=== PATIENT | female | born 1980 | race Caucasian/White ===

== ENCOUNTER 2020-02-20 09:48 | Inpatient (IN) | payer MEDICAID ==
[2020-02-20] VITALS (29 sets, daily range): BP systolic 81–117; BP diastolic 30–82
[~2020-02-20] VITALS: Ht 162.6 cm; Wt 103.0 kg
[2020-02-20] MEDS ORDERED: ONDANSETRON HCL/PF 4 MG/2 ML VIAL IVP ONE (10:00)
[2020-02-20] MEDS ORDERED: HALOPERIDOL LACTATE INJ 5 MG/ML VIAL IM ONE (10:00)
[2020-02-20] MEDS ORDERED: IV NS 0.9% 500 ML BAG IV ONE (10:00)
[2020-02-20] MEDS ORDERED: ACETAMINOPHEN 650 MG/SUPP.RECT RC ONE ×2 (10:00→10:17)
--- NOTE | 2020-02-20 10:00 | NUR ---
berenice from home, found altered this morning. Patient opens eyes, moans, confused at this time. Patient changed into gown, attached to the site monitor.
[2020-02-20] MEDS ORDERED: ONDANSETRON HCL/PF 4 MG/2 ML VIAL ONE (10:05)
[2020-02-20] MEDS ORDERED: HALOPERIDOL LACTATE INJ 5 MG/ML VIAL ONE (10:05)
[2020-02-20 10:11] LABS: ABG BASE EXCESS -6.9 mmol/L; ABG OXYGEN SATURATION 92.7 % (92.0-98.5); ABG PCO2 23.4 mmHg (35.0-45.0); ABG PH 7.462 (7.350-7.450); ABG PO2 73.7 mmHg (75.0-100.0); COHb 3.3 % (0.5-1.5); MetHb 1.3 % (0.0-1.5); O2Hb 88.4 % (94.0-97.0); SITE, ABG Right Radial; VENT MODE, BG ROOM AIR
[2020-02-20 10:26] LABS: LYMPHOCYTES # (AUTO) 0.3 /CMM (0.8-4.8); LYMPHOCYTES % (AUTO) 5.6 % (20.0-44.0); MEAN CORPUSCULAR HGB CONC 34 g/dl (31.0-36.0)
[2020-02-20 10:28] LABS: BASOPHILS % (AUTO) 0.6 % (0.0-2.0); MEAN CORPUSCULAR VOLUME 122 fL (82-100); MONOCYTES # (AUTO) 0.7 /CMM (0.1-1.30); MONOCYTES % (AUTO) 12.2 % (2.0-12.0); NEUTROPHILS # (AUTO) 4.8 /CMM (1.8-8.9); NEUTROPHILS % (AUTO) 79.6 % (43.0-81.0)
[2020-02-20 10:34] LABS: RED BLOOD CELL COUNT(AUTO) 1.37 MIL/uL (4.0-5.2)
[2020-02-20 10:35] LABS: HEMATOCRIT 17 % (33-45); HEMOGLOBIN 5.7 g/dL (11.5-14.8); PLATELET COUNT (AUTO) 49 /CMM (150-450)
[2020-02-20 10:36] LABS: CALCIUM, SERUM 8.8 mg/dL (8.5-10.1); CARBON DIOXIDE 18 mmol/L (21-32); CHLORIDE 100 mmol/L (98-107); CREATININE 3.2 mg/dL (0.6-1.3); GLUCOSE 108 mg/dL (74-106); POTASSIUM 5.4 mmol/L (3.5-5.1); SODIUM SERUM 131 mmol/L (136-145); UREA NITROGEN, BLOOD 76 mg/dL (7-18)
[2020-02-20 10:41] LABS: ALANINE AMINOTRANSFERASE 36 U/L (12-78); ALBUMIN 2.9 g/dL (3.4-5.0); ALCOHOL, BLOOD < 3 mg/dL (0-0); ALKALINE PHOSPHATASE 59 U/L (46-116); ASPARTATE AMINOTRANSFERASE 115 U/L (15-37); BILIRUBIN,TOTAL 16.2 mg/dL (0.2-1.0); TOTAL PROTEIN, SERUM 6.3 g/dL (6.4-8.2)
[2020-02-20 10:42] LABS: ACETAMINOPHEN 0 ug/ml (10-30); SALICYLATE < 2.8 mg/dL (2.8-20.0)
[2020-02-20 10:48] LABS: APPEARANCE,URINE Clear (CLEAR); BILIRUBIN,URINE SMALL (NEGATIVE); BLOOD, URINE Moderate Ery/uL (NEGATIVE); COLOR,URINE Yellow (YELLOW); KETONES,URINE Negative (NEGATIVE); LEUKOCYTE ESTERASE ,URINE Large (NEGATIVE); NITRITE, URINE Positive (NEGATIVE); PROTEIN,URINE 100 mg/dl (NEGATIVE); UGLUCOSE Negative (NEGATIVE)
[2020-02-20 10:50] LABS: SERUM AMMONIA 31 umol/L (11-32)
[2020-02-20 10:51] LABS: BACTERIA,URINE 1+ /HPF (None Seen); WBC,URINE 21-50 /HPF (0-3)
--- NOTE | 2020-02-20 11:02 | NUR ---
move sheet submitted
[2020-02-20 11:05] LABS: CREATINE KINASE, TOTAL 729 U/L (26-192); FERRITIN 134 ng/mL (8-388); THYROID STIMULATING HORMONE 1.178 uIU/mL (0.358-3.74)
[2020-02-20 11:12] LABS: C-REACTIVE PROTEIN 11.1 mg/dL (0.0-0.9)
--- NOTE | 2020-02-20 11:13 | NUR ---
PATIENT RESTING, NO DISTRESS NOTED.
[2020-02-20] MEDS ORDERED: PIPERACILLIN /TAZOBACTAM 3.375 G in IV D5W 50 ML IV ONE (11:30)
[2020-02-20] MEDS ORDERED: IV NS 0.9% 1,000 ML BAG IV ONE (11:30)
[2020-02-20 11:34] LABS: D-DIMER 25.5 mg/L(FEU (0.17-0.50)
[2020-02-20 11:35] LABS: BAND % (MANUAL) 1 % (0.0-5.0); EOSINOPHILS % (MANUAL) 1 % (0-4); LYMPHOCYTES % (MANUAL) 6 % (16-48); MONOCYTES % (MANUAL) 9 % (0-11.0); NEUTROPHILS % (MANUAL) 83 (42-76)
[2020-02-20] MEDS ORDERED: SPIR100T5 PO (11:50)
[2020-02-20] MEDS ORDERED: PROP10TA68 PO (11:50)
[2020-02-20] MEDS ORDERED: FURO40TA5 PO (11:50)
--- NOTE | 2020-02-20 12:22 | NUR ---
PATIENT RESTING, ASLEEP IN BED, VITALS STABLE.
--- NOTE | 2020-02-20 12:39 | NUR ---
CONSENT FOR BLOOD TRANSFUSION ALSO WITNESSED BY CRISPIN CHOWDHURY RN AND KIESHA BRYANT RN.
--- NOTE | 2020-02-20 12:39 | NUR ---
TIESHA DIAZ (DAUGHTER) - 12/14/1999 TELEPHONE CONSENT OBTAIN FOR BLOOD TRANSFUSION WITNESSED BY NEREIDA BAKER
--- NOTE | 2020-02-20 12:42 | NUR ---
LAB CALLED LACTIC ACID 3.2 MD AWARE.
--- NOTE | 2020-02-20 12:44 | NUR ---
PATIENT SPITTING OUT BLOOD, DR. LUX MADE AWARE.
--- NOTE | 2020-02-20 12:45 | NUR ---
COVID PCR SWAB SENT.
--- NOTE | 2020-02-20 12:45 | NUR ---
GOT BED 258
--- NOTE | 2020-02-20 12:58 | NUR ---
REPORT GIVEN TO YOKO PADRON.
--- NOTE | 2020-02-20 13:05 | NUR ---
MANAGER NEONATAL INITIAL NOTE RECEIVED REPORT FROM ER NURSE STEFFEN. RECEIVED PATIENT VIA GURNEY. PATIENT NON-VERBAL, ALTERED, LETHARGIC. NO S/S OF PAIN OR DISCOMFORT. NO RESPIRATORY DISTRESS NOTED, ON ROOM AIR. ON TELE MONITOR SINUS TACH. F/C IN PLACE DRAINING BY GRAVITY. PENDING PCR RESULT, ISOLATION PRECAUTIONS OBSERVED. SKIN WARM AND DRY TO TOUCH. AFEBRILE. UNABLE TO OBTAIN INFORMATION FROM PATIENT. NOTED WITH BLE EDEMA AND YELLOWISH SKIN AND SCLERA. HOB ELEVATED. SIDE RAILS UP AND LOCKED. BED KEPT AT LOWEST POSITION. CALL LIGHT KEPT WITHIN EASY REACH. PER REPORT PATIENT WAS RESTLESS IN ER AND ONE TIME DOSE OF HALDOL WAS GIVEN WELL FLUIDS AND ABX. PER REPORT ONE UNIT PRBC AND ONE UNIT PLATELET NEEDS TO BE GIVE. WILL CONTINUE TO MONITOR.
--- NOTE | 2020-02-20 13:12 | NUR ---
PATIENT TRANSFERRED TO ROOM 258 VIA ACLS PROTOCOL. PATIENT AWAKE, NON-VERBAL AND CONFUSED AT THIS TIME. NEEDS ATTENDED. ENDORSED TO YOKO RN.
[2020-02-20] MEDS ORDERED: SODIUM POLYSTYRENE SULFONATE 15 G/60 ML BOTTLE RC ONE (14:00)
[2020-02-20] MEDS ORDERED: ONDANSETRON HCL/PF 4 MG/2 ML VIAL IVP PRN (14:00)
[2020-02-20] MEDS ORDERED: MAGNESIUM HYDROXIDE 30 ML UDC PO PRN (14:00)
[2020-02-20] MEDS ORDERED: MAG HYDROX/AL HYDROX/SIMETH 30 ML UDC PO PRN (14:00)
[2020-02-20] MEDS ORDERED: HALOPERIDOL LACTATE INJ 5 MG/ML VIAL IM PRN (14:00)
[2020-02-20] MEDS ORDERED: Z GUARD REMEDY 2 OZ OINT TP PRN (14:00)
--- NOTE | 2020-02-20 14:08 | NUR ---
CARCASS WASHER NOTE RELAYED TO SILKE PATIENT BLOOD PRESSURE 84/30. WITH ORDERS OK TO START LEVO AND RECHECK WBC AND H/H 2 HOURS AFTER PLATELETS AND PRBC GIVEN. NOTED.
[2020-02-20] MEDS ORDERED: NOREPINEPHRINE 8 MG in IV NS 0.9% 242 ML IV PRN (14:30)
[2020-02-20] MEDS ORDERED: PIPERACILLIN /TAZOBACTAM 2.25 G in IV D5W 50 ML IV SCH ×2 (15:00→20:00)
[2020-02-20 16:14] LABS: CREATININE, URINE 55.4 MG/DL (30.0-125.0); URINE TOTAL PROTEIN 58.9 mg/dL (0-11.9)
[2020-02-20 16:20] LABS: APPEARANCE,URINE SL CLOUDY (CLEAR); BILIRUBIN,URINE SMALL (NEGATIVE); BLOOD, URINE MODERATE Ery/uL (NEGATIVE); COLOR,URINE YELLOW (YELLOW); KETONES,URINE NEGATIVE (NEGATIVE); LEUKOCYTE ESTERASE ,URINE LARGE (NEGATIVE); NITRITE, URINE POSITIVE (NEGATIVE); PROTEIN,URINE 30 mg/dl (NEGATIVE); UGLUCOSE NEGATIVE (NEGATIVE)
[2020-02-20 16:24] LABS: BACTERIA,URINE 3+ /HPF (None Seen); RBC,URINE 21-50 /HPF (0-2); SQUAMOUS EPITHELIAL CELL,UR Few /HPF (None Seen); WBC,URINE TOO NUMEROUS TO COUN /HPF (0-3)
[2020-02-20] MEDS: IV NS 0.9% 1,000 ML IV PRN (17:00)
[2020-02-20 17:04] LABS: EOSINOPHIL,URINE Rare
--- NOTE | 2020-02-20 18:04 | NUR ---
CLASSIFICATION COUNSELOR NOTE INFORMED SILKE PATIENT COMPLETED ONE UNIT OF PRBC AND ONE UNIT OF PLATELET WITH NO DIFFICULTIES. CBC WILL BE DRAWN AT 1900. RECEIVED STANDING ORDER IF PATIENTS HEMOGLOBIN IS LESS THAN 7 TRANSFUSE ONE MORE UNIT OF PRBC. NOTED AND WILL RELAY TO NIGHT NURSE.
--- NOTE | 2020-02-20 18:07 | NUR ---
WAD LUBRICATOR NOTE PICC LINE NURSE AT BEDSIDE.
--- NOTE | 2020-02-20 18:14 | NUR ---
CUSTOMER SERVICE REP NOTE CXR DONE FOR PICC LINE PLACEMENT, PER PICC LINE NURSE OK TO USE PICC LINE.
[2020-02-20] MEDS ORDERED: FEE PK DOSING 1 MIN EA MC ONE (18:59)
[2020-02-20] MEDS ORDERED: PHYTONADIONE INJ 10 MG/1 ML AMPUL SQ ONE (20:00)
[2020-02-20] MEDS: prednisoLONE 5 MG/5 ML UDC PO SCH (20:00)
[2020-02-20] MEDS ORDERED: LORAZEPAM INJ 2 MG/ML VIAL IV PRN (20:00)
[2020-02-20] MEDS ORDERED: VANCOMYCIN 1 GM in IV D5W 250 ML IV SCH (20:00)
[2020-02-20] MEDS: PENTOXIFYLLINE 400 MG TABLET.SA PO SCH (20:00)
[2020-02-20 20:03] LABS: BASOPHILS % (AUTO) 0.8 % (0.0-2.0); EOSINOPHILS % (AUTO) 2.1 % (0.0-6.0); LYMPHOCYTES # (AUTO) 0.3 /CMM (0.8-4.8); LYMPHOCYTES % (AUTO) 5.7 % (20.0-44.0); MEAN CORPUSCULAR HGB CONC 34 g/dl (31.0-36.0); MEAN CORPUSCULAR VOLUME 114 fL (82-100); MONOCYTES # (AUTO) 0.7 /CMM (0.1-1.30); MONOCYTES % (AUTO) 14.5 % (2.0-12.0); NEUTROPHILS # (AUTO) 3.7 /CMM (1.8-8.9); NEUTROPHILS % (AUTO) 76.9 % (43.0-81.0); WHITE BLOOD COUNT (AUTO) 4.8 K/uL (4.3-11.0)
[2020-02-20 20:08] LABS: RED BLOOD CELL COUNT(AUTO) 1.52 MIL/uL (4.0-5.2)
--- NOTE | 2020-02-20 20:10 | NUR ---
lab called for HGB=5.9. Will order 1 unit PRBC for transfusion as ordered .( with order to transfuse 1 PRBC if HGB still < 7 with the 1900 blood draw).
[2020-02-20 20:11] LABS: HEMOGLOBIN 5.9 g/dL (11.5-14.8)
[2020-02-20 20:12] LABS: HEMATOCRIT 17 % (33-45); PLATELET COUNT (AUTO) 48 /CMM (150-450)
--- NOTE | 2020-02-20 20:13 | NUR ---
CARTRIDGE FILLER CLOSING NOTE PATIENT MORE AWAKE, ALERT AND ORIENTED TO SELF. COOPERATIVE, FOLLOWING COMMANDS. PATIENT HAD ONE BOWEL MOVEMENT AFTER KAYEXALATE ADMINISTRATIONS. NO BLOOD TRANSFUSION REACTION AFTER PRBC AND PLATELET GIVEN. F/C DRAINING BY GRAVITY. PICC LINE NURSE RETRACTED PICC LINE BY 5CM, NOTED WITH BLEEDING AFTERWARDS. DRESSING CHANGED BY PM NURSE. HOB ELEVATED. F/C DRAINING BY GRAVITY. SIDE RAILS UP AND LOCKED. BED KEPT AT LOWEST POSITION. CALL LIGHT KEPT WITHIN EASY REACH. CONTINUITY OF CARE ENDORSED TO PM NURSE.
--- NOTE | 2020-02-20 20:30 | NUR ---
Order entered for PRBC transfusion .Will transfuse once available.
[2020-02-20 20:34] LABS: BAND % (MANUAL) 12 % (0.0-5.0); LYMPHOCYTES % (MANUAL) 4 % (16-48); METAMYELOCYTES % 2 % (0-0); MONOCYTES % (MANUAL) 15 % (0-11.0); NEUTROPHILS % (MANUAL) 67 (42-76)
--- NOTE | 2020-02-20 20:41 | NUR ---
REceived patient lethargic,arousable ,opens eyes,able to speak few words but unable to stay awake,easily falls back to drowsiness.Knows name,knows birthday,follows simple commands.Not in any acute respiratory distress,but breathing slightly labored with deep inspiratory effort, on nasal cannula 3 L/min. + icteric sclera,+ edema of lower extremities. PICC line @ [facility].Will closely monitor for any S/S of bleeding. 1919 Specimen drawn for CBC.Will transfuse if HGB < 7 with 1 unit PRBC. Addendum: 02/21/20 at 0202 by JENNIFER PIZARRO RN above note is for 1899
[2020-02-20] MEDS ORDERED: Thiamine 100 MG in IV D5W 50 ML IV SCH (21:00)
[2020-02-20] MEDS ORDERED: OCTREOTIDE 50 MCG in IV NS 0.9% 50 ML IV ONE (21:00)
[2020-02-20] MEDS ORDERED: Thiamine 300 MG in IV D5W 50 ML IV ONE (21:00)
[2020-02-20] MEDS: OCTREOTIDE 1,250 MCG in IV NS 0.9% 247.5 ML IV PRN (21:25)
--- NOTE | 2020-02-20 22:00 | NUR ---
Dr. Jolley was notified of the latest HGB of 5.9, Plt= 48. made him aware that there is already an order to transfuse 1 unit PRBC for a Hgb of less than 7,(already ordered),but ask him if he wants additional PRBC or platelet. just give 1 unit tonight and check CBC in am.
[2020-02-20] MEDS: MEROPENEM 500 MG in IV NS 0.9% 100 ML IV SCH (22:01)
--- NOTE | 2020-02-20 23:00 | NUR ---
followed up on the PRBC, not yet ready .as per blood bank tech, she will call me when its ready.
--- NOTE | 2020-02-20 23:45 | NUR ---
PRBC transfusion started.
[2020-02-21] VITALS (58 sets, daily range): BP systolic 88–122; BP diastolic 24–74
--- NOTE | 2020-02-21 | NUR ---
REMAINS STABLE,STILL LETHARGIC BUT STILL AWAKENS ON AND OFF, VERBALLY RESPONSIVE,SEEMS COHERENT BUT VERY PASSIVE.NO BLEEDING NOTED.PRBC TRANSFUSU=ION ON GOING TOLERATING SO FAR ,NO S/S OF ANY TRANSFUSION REACTION.
--- NOTE | 2020-02-21 03:00 | NUR ---
PRBC TRANSFUSION OVER,TOLERATED WELL, NO TRANSFUSION REACTION.STILL WITH NO S/S OF ANY BLEEDING ,V/S REMAINS STABLE.
--- NOTE | 2020-02-21 04:00 | NUR ---
MORE ALERT THIS MORNING,CONVERSES,COHERENT,FOLLOWS COMMANDS. NO ACTIVE BLEEDING NOTED,B,NOT IN ANY DISTRESS BUT C/O SOB WHEN FLAT ON BED AND ON TURNING/MOVING BUT NO DESATURATION.MAINTAIN O2 VIA NASAL CANNULA FOR NOW.
[2020-02-21] MEDS: IV NS 0.9% 1,000 ML IV PRN ×2 (05:07→17:28)
[2020-02-21 05:50] LABS: BASOPHILS % (AUTO) 0.6 % (0.0-2.0); EOSINOPHILS % (AUTO) 1.4 % (0.0-6.0); LYMPHOCYTES # (AUTO) 0.3 /CMM (0.8-4.8); LYMPHOCYTES % (AUTO) 6.2 % (20.0-44.0); MEAN CORPUSCULAR HGB CONC 35 g/dl (31.0-36.0); MEAN CORPUSCULAR VOLUME 109 fL (82-100); MONOCYTES # (AUTO) 0.6 /CMM (0.1-1.30); MONOCYTES % (AUTO) 12.9 % (2.0-12.0); NEUTROPHILS # (AUTO) 3.6 /CMM (1.8-8.9); NEUTROPHILS % (AUTO) 78.9 % (43.0-81.0); WHITE BLOOD COUNT (AUTO) 4.6 K/uL (4.3-11.0)
[2020-02-21 06:02] LABS: ALBUMIN 2.5 g/dL (3.4-5.0); BILIRUBIN,DIRECT 9.8 mg/dL (0.0-0.2); BILIRUBIN,TOTAL 14.4 mg/dL (0.2-1.0); CALCIUM, SERUM 7.9 mg/dL (8.5-10.1); CREATININE 2.7 mg/dL (0.6-1.3); MAGNESIUM 2.5 mg/dL (1.8-2.4); PHOSPHORUS 4.8 mg/dL (2.5-4.9); POTASSIUM 5.6 mmol/L (3.5-5.1); TOTAL PROTEIN, SERUM 5.6 g/dL (6.4-8.2)
[2020-02-21 06:11] LABS: RED BLOOD CELL COUNT(AUTO) 1.72 MIL/uL (4.0-5.2)
[2020-02-21 06:12] LABS: HEMOGLOBIN 6.5 g/dL (11.5-14.8)
[2020-02-21 06:13] LABS: HEMATOCRIT 19 % (33-45); PLATELET COUNT (AUTO) 42 /CMM (150-450)
--- NOTE | 2020-02-21 06:30 | NUR ---
HGB=6.5, PLT=[address] MCALLISTER, ORDERED 1 UNIT PRBC TRANSFUSION.ORDER ENTERED.
--- NOTE | 2020-02-21 07:00 | NUR ---
REPPORT GIVEN TO YOKO PADRON ,FOR PRBC TRANSFUSION THIS AM.
[2020-02-21 07:36] LABS: BAND % (MANUAL) 3 % (0.0-5.0); EOSINOPHILS % (MANUAL) 2 % (0-4); LYMPHOCYTES % (MANUAL) 4 % (16-48); MONOCYTES % (MANUAL) 15 % (0-11.0); NEUTROPHILS % (MANUAL) 76 (42-76)
--- NOTE | 2020-02-21 08:20 | NUR ---
UNDERWRITING SALES REPRESENTATIVE NOTE PATIENT AWAKE, ALERT AND ORIENTED. FOLLOWS COMMANDS. DENIES PAIN AT THIS TIME. PATIENT REQUESTING TO EAT, DID BEDSIDE EVAL, PATIENT WITH NO DIFFICULTY SWALLOWING OR CHEWING, NO COUGHING NOTED. INFORMED DR. DICK WITH OK FOR PATIENT TO EAT. WILL CONTINUE TO MONITOR.
[2020-02-21] MEDS ORDERED: FUROSEMIDE 20 MG/2 ML VIAL IV ONE (08:30)
[2020-02-21] MEDS: MEROPENEM 500 MG in IV NS 0.9% 100 ML IV SCH ×2 (08:55→21:19)
[2020-02-21] MEDS: PENTOXIFYLLINE 400 MG TABLET.SA PO SCH ×3 (08:56→17:28)
[2020-02-21] MEDS: prednisoLONE 5 MG/5 ML UDC PO SCH (08:56)
[2020-02-21] MEDS ORDERED: PANTOPRAZOLE 40 MG VIAL IV SCH (09:00)
[2020-02-21] MEDS ORDERED: SODIUM POLYSTYRENE SULFONATE 15 G/60 ML BOTTLE PO ONE (09:00)
[2020-02-21 12:15] LABS: CALCIUM, SERUM 7.7 mg/dL (8.5-10.1); CREATININE 2.7 mg/dL (0.6-1.3); POTASSIUM 4.9 mmol/L (3.5-5.1)
[2020-02-21] MEDS: VANCOMYCIN 1 GM in IV D5W 250 ML IV SCH (13:56)
[2020-02-21 15:41] LABS: BASOPHILS % (AUTO) 0.3 % (0.0-2.0); EOSINOPHILS % (AUTO) 2.1 % (0.0-6.0); HEMATOCRIT 21 % (33-45); HEMOGLOBIN 7.2 g/dL (11.5-14.8); LYMPHOCYTES # (AUTO) 0.3 /CMM (0.8-4.8); LYMPHOCYTES % (AUTO) 7.7 % (20.0-44.0); MEAN CORPUSCULAR HGB CONC 34 g/dl (31.0-36.0); MEAN CORPUSCULAR VOLUME 106 fL (82-100); MONOCYTES # (AUTO) 0.3 /CMM (0.1-1.30); MONOCYTES % (AUTO) 7.2 % (2.0-12.0); NEUTROPHILS # (AUTO) 3.7 /CMM (1.8-8.9); NEUTROPHILS % (AUTO) 82.7 % (43.0-81.0); WHITE BLOOD COUNT (AUTO) 4.5 K/uL (4.3-11.0)
[2020-02-21 15:55] LABS: RED BLOOD CELL COUNT(AUTO) 1.98 MIL/uL (4.0-5.2)
[2020-02-21 15:56] LABS: PLATELET COUNT (AUTO) 34 /CMM (150-450)
--- NOTE | 2020-02-21 16:02 | NUR ---
BARREL DRILLER NOTE RELAYED CRITICAL PLATELET COUNT [address] VIGIL WITH NNO. RELAYED TO MD PER PHARMACY WE DON'T DO PROTONIX DRIP ANYMORE AND ONLY DO IVP PROTONIX. PER MD OK TO CHANGE PROTONIX TO BID. NOTED AND CARRIED OUT.
[2020-02-21 16:55] LABS: BAND % (MANUAL) 4 % (0.0-5.0); LYMPHOCYTES % (MANUAL) 7 % (16-48); MONOCYTES % (MANUAL) 2 % (0-11.0); NEUTROPHILS % (MANUAL) 80 (42-76); REACTIVE LYMPHOCYTES 7 % (0-0)
[2020-02-21] MEDS: ACETAMINOPHEN 325 MG TABLET PO ONE ×2 (17:50→18:01)
[2020-02-21] MEDS ORDERED: diphenhydrAMINE HCL 50 MG/ML VIAL IV ONE (18:00)
[2020-02-21] MEDS ORDERED: PHYTONADIONE INJ 10 MG/1 ML AMPUL SQ ONE (18:30)
--- NOTE | 2020-02-21 18:47 | NUR ---
MECHANICAL PRODUCT ENGINEER NOTE FIRST UNIT OF PLASMA INFUSING. PER LAB [facility] PLATELETS WONT BE READY RIGHT AWAY DUE TO PLT ARE FROM [facility] AND PER [facility] THEY HAVE A SHORTAGE IN PLATELETS. DR HAWKINS MADE AWARE. WILL CONTINUE TO MONITOR.
--- NOTE | 2020-02-21 19:30 | NUR ---
ETHICS OFFICER OPENING NOTE, RECEIVED PATIENT AWAKE, ALERT AND ORIENTED. A LITTLE SLOW BUT FOLLOWS COMMANDS. NO S/S OF SOB OR ACUTE DISTRESS NOTED AT THIS TIME. DENIES PAIN AT THIS TIME. RIGHT UPPER ARM PICC LINE RUNNING OCTREOTIDE @25MCG AND NS @100 ML. IV #18 ON RAC AND #20 ON L HAND SL. GENERALIZED EDEMA. +3 ON LOWER EXTREMITIES. FC DRAINING CLEAR/YELLOW URINE TO THE GRAVITY. BED IS LOCKED IN LOW POSITION CALL LIGHT WITHIN REACH WILL CONTINUE TO MONITOR THE PATIENT CLOSELY.
[2020-02-21] MEDS: OCTREOTIDE 1,250 MCG in IV NS 0.9% 247.5 ML IV PRN (19:34)
[2020-02-21 19:37] LABS: D-DIMER 19.38 mg/L(FEU (0.17-0.50)
[2020-02-21] MEDS: Thiamine 100 MG in IV D5W 50 ML IV SCH (19:58)
[2020-02-21] MEDS: PANTOPRAZOLE 40 MG VIAL IV SCH (21:20)
--- NOTE | 2020-02-21 23:00 | NUR ---
ONE UNIT PLASMA READY TO TRANSFER.
[2020-02-22] VITALS (52 sets, daily range): BP systolic 92–122; BP diastolic 43–68
--- NOTE | 2020-02-22 00:30 | NUR ---
ONE UNIT PLASMA WAS TRANSFERRED. VSS. WILL CONTINUE TO MONITOR
[2020-02-22 04:34] LABS: BASOPHILS % (AUTO) 0.3 % (0.0-2.0); EOSINOPHILS % (AUTO) 0.2 % (0.0-6.0); LYMPHOCYTES # (AUTO) 0.6 /CMM (0.8-4.8); LYMPHOCYTES % (AUTO) 10.4 % (20.0-44.0); MEAN CORPUSCULAR HGB CONC 35 g/dl (31.0-36.0); MEAN CORPUSCULAR VOLUME 104 fL (82-100); MONOCYTES # (AUTO) 0.6 /CMM (0.1-1.30); MONOCYTES % (AUTO) 10.7 % (2.0-12.0); NEUTROPHILS # (AUTO) 4.6 /CMM (1.8-8.9); NEUTROPHILS % (AUTO) 78.4 % (43.0-81.0); WHITE BLOOD COUNT (AUTO) 5.8 K/uL (4.3-11.0)
[2020-02-22 04:55] LABS: ALBUMIN 2.4 g/dL (3.4-5.0); BILIRUBIN,TOTAL 13.7 mg/dL (0.2-1.0); CALCIUM, SERUM 7.9 mg/dL (8.5-10.1); CREATININE 2.5 mg/dL (0.6-1.3); MAGNESIUM 2.6 mg/dL (1.8-2.4); PHOSPHORUS 3.7 mg/dL (2.5-4.9); POTASSIUM 4.4 mmol/L (3.5-5.1); TOTAL PROTEIN, SERUM 5.6 g/dL (6.4-8.2)
[2020-02-22 05:31] LABS: RED BLOOD CELL COUNT(AUTO) 1.93 MIL/uL (4.0-5.2)
[2020-02-22 05:32] LABS: HEMATOCRIT 20 % (33-45)
[2020-02-22 05:33] LABS: PLATELET COUNT (AUTO) 39 /CMM (150-450)
[2020-02-22] MEDS: IV NS 0.9% 1,000 ML IV PRN ×2 (05:58→17:30)
[2020-02-22 06:13] LABS: BAND % (MANUAL) 2 % (0.0-5.0); LYMPHOCYTES % (MANUAL) 10 % (16-48); METAMYELOCYTES % 1 % (0-0); MONOCYTES % (MANUAL) 10 % (0-11.0); NEUTROPHILS % (MANUAL) 77 (42-76)
--- NOTE | 2020-02-22 07:27 | NUR ---
MEAT SERVICE TEAM MEMBER CLOSING NOTE, PATIENT AWAKE, ALERT AND ORIENTED. A LITTLE SLOW BUT FOLLOWS COMMANDS. NO S/S OF SOB OR ACUTE DISTRESS NOTED AT THIS TIME. DENIES PAIN AT THIS TIME. RIGHT UPPER ARM PICC LINE RUNNING OCTREOTIDE @25MCG AND NS @100 ML. IV #18 ON RAC AND #20 ON L HAND SL. GENERALIZED EDEMA. FC DRAINING CLEAR/YELLOW URINE TO THE GRAVITY. BED IS LOCKED IN LOW POSITION CALL LIGHT WITHIN REACH WILL CONTINUE TO MONITOR THE PATIENT CLOSELY.
[2020-02-22 07:34] LABS: D-DIMER 18.69 mg/L(FEU (0.17-0.50)
[2020-02-22 08:07] LABS: PTH, INTACT 30 pg/mL (15-65)
[2020-02-22] MEDS: PANTOPRAZOLE 40 MG VIAL IV SCH ×2 (08:17→20:11)
[2020-02-22] MEDS: VANCOMYCIN 1 GM in IV D5W 250 ML IV SCH (08:18)
[2020-02-22] MEDS: predniSONE 20 MG TABLET PO SCH (08:18)
[2020-02-22] MEDS: PENTOXIFYLLINE 400 MG TABLET.SA PO SCH ×3 (08:18→17:00)
--- NOTE | 2020-02-22 08:36 | NUR ---
WOUND CARE CONSULT: PT SEEN FOR SKIN ASSESSMENT AND NOTED TO HAVE JAUNDICED SKIN WITH GENERALIZED EDEMA, PRESENT ON ADMISSION. SOME SCARRING NOTED TO ABDOMEN AND BUTTOCKS SKIN. RECOMMENDATIONS MADE FOR SKIN PROTECTION. DISCUSSED WITH NURSING STAFF. WILL SEE PRN. JAFFE IN AGREEMENT WITH PLAN OF CARE.
[2020-02-22] MEDS: MEROPENEM 500 MG in IV NS 0.9% 100 ML IV SCH ×2 (10:18→20:11)
[2020-02-22 14:27] LABS: *SPE A/G RATIO 0.9 (0.7-1.7); *SPE ALBUMIN 2.5 g/dL (2.9-4.4); *SPE ALPHA-1-GLOBULIN 0.2 g/dL (0.0-0.4); *SPE ALPHA-2-GLOBULIN 0.3 g/dL (0.4-1.0); *SPE BETA GLOBULIN 0.8 g/dL (0.7-1.3); *SPE GLOBULIN, TOTAL 2.7 g/dL (2.2-3.9); *SPE M-SPIKE Not Observed g/dL (Not Observed); *SPEGAMMA GLOBULIN 1.4 g/dL (0.4-1.8)
[2020-02-22] MEDS ORDERED: ANESTHESIA TRAY IN PYXIS 1 EA TRAY MC ONE (16:52)
--- NOTE | 2020-02-22 19:18 | NUR ---
RN OPENING NOTES: RECEIVED PT A/OX 3 IN BED RESTING COMFORTABLY. PATIENT IN NO S/SX OF ACUTE DISTRESS AT THIS TIME. NO SOB NOTED. PATIENT'S BREATHING IS EVEN AND UNLABORED. PATIENT IS ON ROOM AIR; TOLERATING WELL, SATURATING @97% AT TIME OF RECEIPT. PATIENT ON TELE MONITORING READING SINUS RHYTHM HR IS @62. NOTED IV SITE ON THE FOLLOWING R UA PICC LINE AND L HAND #20; BOTH PATENT, INTACT AND FLUSHING WELL. NO S/S OF INFECTION OR INFILTRATION. WITH RUNNING IV FLUID OF 1L .9 NS @100MLS/HR; INFUSING WELL. MCNEAL CATH IN PLACE, MODERATE URINE OUTPUT NOTED SAFETY MEASURES HAVE BEEN PROVIDED AND IMPLEMENTED. PATIENT BED ALARM IS ON. HEAD OF BED ELEVATED. BED IS LOCKED, IN LOWEST POSITION AND SIDE RAILS UP. CALL LIGHT WITHIN REACH OF THE PATIENT. ISOLATION PRECAUTIONS IN PLACE. WILL CONTINUE TO MONITOR AND REASSESS FOR ANY CHANGES.
[2020-02-22] MEDS: Thiamine 100 MG in IV D5W 50 ML IV SCH (19:53)
--- NOTE | 2020-02-22 22:51 | NUR ---
RN NOTES RECEIVED CALL FROM DR. HAWKINS, CHECKING IF PT RECEIVED CRYOPRECIPITATE. ADVISED HER THAT PER RECORD/CHART VALIDATION PT WAS NOT GIVEN CRYOPRECIPITATE, PER ORDER PT TO BE GIVEN CRYOPRECIPITATE IFFIBRINOGEN LEVEL IS <15, LAST FIBRINOGEN LEVEL IS @ 152 (02.22.2020).ALSO ADVISE MD THAT FIBRINOGEN LEVEL WILL BE CHECK THE FOLLOWING DAY SCHEDULED PER ORDER HISTORY. MD ACKNOWLEDGED. ALLERGIST/MD MADE AWARE.
[2020-02-23] VITALS (32 sets, daily range): BP systolic 78–132; BP diastolic 49–71
[2020-02-23] MEDS: IV NS 0.9% 1,000 ML IV PRN (03:00)
[2020-02-23 04:58] LABS: BASOPHILS % (AUTO) 0.1 % (0.0-2.0); EOSINOPHILS % (AUTO) 0.1 % (0.0-6.0); HEMATOCRIT 22 % (33-45); HEMOGLOBIN 7.5 g/dL (11.5-14.8); LYMPHOCYTES # (AUTO) 0.9 /CMM (0.8-4.8); LYMPHOCYTES % (AUTO) 11.9 % (20.0-44.0); MEAN CORPUSCULAR HGB CONC 35 g/dl (31.0-36.0); MEAN CORPUSCULAR VOLUME 103 fL (82-100); MONOCYTES # (AUTO) 0.7 /CMM (0.1-1.30); MONOCYTES % (AUTO) 9.1 % (2.0-12.0); NEUTROPHILS # (AUTO) 5.9 /CMM (1.8-8.9); NEUTROPHILS % (AUTO) 78.8 % (43.0-81.0); PLATELET COUNT (AUTO) 61 /CMM (150-450); RED BLOOD CELL COUNT(AUTO) 2.11 MIL/uL (4.0-5.2); WHITE BLOOD COUNT (AUTO) 7.5 K/uL (4.3-11.0)
[2020-02-23 05:13] LABS: CALCIUM, SERUM 7.3 mg/dL (8.5-10.1); CREATININE 2.1 mg/dL (0.6-1.3); MAGNESIUM 2.3 mg/dL (1.8-2.4); PHOSPHORUS 3.8 mg/dL (2.5-4.9); POTASSIUM 3.9 mmol/L (3.5-5.1)
[2020-02-23 05:38] LABS: BAND % (MANUAL) 5 % (0.0-5.0); LYMPHOCYTES % (MANUAL) 16 % (16-48); MONOCYTES % (MANUAL) 9 % (0-11.0); NEUTROPHILS % (MANUAL) 70 (42-76)
[2020-02-23 05:50] LABS: D-DIMER 17.69 mg/L(FEU (0.17-0.50)
--- NOTE | 2020-02-23 06:32 | NUR ---
ANESTHESIOLOGY TECH NOTES CALLED LAB, SPOKE WITH OSMIN, TRIED TO VERIFY IF THERE'S AVAILABLE CRYOPRECIPITATE PT'S FIBRINOGEN LEVEL IS AT 107MG/DL AND MD ORDERED CRYOPRECIPITATE IF FIBRINOGEN LEVEL <150MG/DL. HE SAID TO F/U A LITTLE LATER. INSPECTOR FUEL HOSE MADE AWARE.
--- NOTE | 2020-02-23 06:46 | NUR ---
INTERACTIVE PRODUCER CLOSING NOTES PATIENT REMAINS IN ROOM IN NO SIGNS OF RESPIRATORY DISTRESS. PATIENT SATURATING 99%. VITAL SIGNS WNL. WILL INFORM INCOMING SHIFT RN TO PATIENT ON NPO IN PREPARATION FOR THE SCHEDULED EGD BEFORE NOON TIME (PROCEDURAL-SURGICAL CHECK LIST COMPLETED AND PLACED IN THE CHART). ALL IV LINES MAINTAINED INTACT, PATENT AND FLUSHING WELL; WITH CURRENT RUNNING IV FLUID ORDERED. WILL INFORM AND ENDORSE TO AM-RN TO FOLLOW UP WITH LAB REGARDING AVAILABILITY OF CRYOPRECIPITATE, ONCE AVAILABLE CARRY OUT ORDER ( TO TRANSFUSE 10 UNITS OF CRYOPRECIPITATE IF FIBRINOGEN LEVEL <150MG/DL and RECENT LEVEL IS AT 107MG/DL). SAFETY PRECAUTIONS IN PLACE AND COMFORT MEASURES RENDERED. BED IN LOWEST POSITION, CALL LIGHT WITHIN REACH, BREAKS ON, SIDE RAILS UP. ALL NEEDS ATTENDED, MEDICATIONS GIVEN SCHEDULED AND ORDERED ; SHIFT ASSESSMENT/BEDBATH/SKIN CARE DONE. PATIENT KEPT CLEAN AND DRY. WILL ENDORSE TO INCOMING SHIFT FOR BEKAH.
--- NOTE | 2020-02-23 07:51 | NUR ---
JACK SPOOLER TENDER RECEIVED PT IN BED AOX2 VS STABLE IV ACCESS PICC LINE MARCIA PATENT INFUSING FLUIDS, FOLLEY CATH PATENT TEA COLOR URINE OUTPUT SAFETY MEASURES TAKEN CALL LIGHT W/ IN REACH, CRYO ORDERED 10U STANDING ORDER IF FIB <150 INFUSE 10 UNITS OF CRYO, ORDERS PUT IN FOR TYPE AND SCREEN WELL PT IS NPO GOING FOR EGD AROUND 11AM
[2020-02-23] MEDS ORDERED: VANCOMYCIN 1 GM in IV D5W 250 ML IV SCH (08:00)
[2020-02-23] MEDS: PANTOPRAZOLE 40 MG VIAL IV SCH ×2 (08:26→20:40)
[2020-02-23] MEDS: predniSONE 20 MG TABLET PO SCH (08:26)
[2020-02-23] MEDS: PENTOXIFYLLINE 400 MG TABLET.SA PO SCH ×3 (08:26→16:04)
[2020-02-23] MEDS: MEROPENEM 500 MG in IV NS 0.9% 100 ML IV SCH ×2 (08:26→20:30)
--- NOTE | 2020-02-23 10:19 | NUR ---
DETECTIVE CHIEF LAB CALLED TO NOTIFY THEY ARE WORKING ON THE CRYO ONCE AVAILABLE WILL CALL BACK FOR PICKUP, PT WAS OUT OF BED WITH PT TOLERATED WILL IN BED RESTING AT THE MOMENT
[2020-02-23] MEDS ORDERED: ANESTHESIA TRAY IN PYXIS 1 EA TRAY MC ONE (10:20)
[2020-02-23] MEDS ORDERED: DEXAMETHASONE SOD PHOSPHATE 10 MG/ML VIAL ONE (10:29)
--- NOTE | 2020-02-23 11:50 | NUR ---
DENTIST/OWNER PT BACK FROM PROCEDURE AOX2 VS STABLE NO DISTRESS NOTED DIET ORDERED
--- NOTE | 2020-02-23 15:28 | NUR ---
TOP LIFT TRIMMER PT IN BED VS STABLE NO DISTRESS NOTED CRYO INFUSED 10U NO ADVERSE REACTION NOTED REPORT GIVEN TO IMTIAZ PADRON FOR CONT OF CARE PT MOVED TO ROOM 105 STABLE CONDITION HER ALLI SUMMERS NOTIFIED REGARDING THE DOWNGRADE AND CHANGE OF LOCATION.
--- NOTE | 2020-02-23 15:45 | NUR ---
PATIENT SITUATED IN ROOM 105 RECEIVED REPORT FROM [facility]. PATIENT NO SIGNS OF DISTRESS. AO X3-4 FOLLOWS COMMANDS. GAVE CELLPHONE TO PATIENT. HOOKED UP TO A TELE BOX. WILL CONT TO MONITOR.
--- NOTE | 2020-02-23 18:38 | NUR ---
RN CLOSING NOTE Patient in bed awake no signs of distress. On room air tolerating well. Afternoon medication given. No co pain or discomfort. No signs of bleeding. Vital signs within normal limits. Call light within reach, Safety measures maintained. Will endorse to night clerk auditor nurse for jessica.
--- NOTE | 2020-02-23 19:15 | NUR ---
RN OPENING NOTES: RECEIVED PT A/OX 3 IN BED RESTING COMFORTABLY. PATIENT IN NO S/SX OF ACUTE DISTRESS AT THIS TIME. NO SOB NOTED. PATIENT'S BREATHING IS EVEN AND UNLABORED. PATIENT IS ON ROOM AIR; TOLERATING WELL, SATURATING @99% AT TIME OF RECEIPT. PATIENT ON TELE MONITORING READING SINUS RHYTHM HR IS @61. NOTED IV SITE ON THE FOLLOWING R UA PICC LINE AND L HAND #20; BOTH PATENT, INTACT AND FLUSHING WELL. NO S/S OF INFECTION OR INFILTRATION. WITH RUNNING IV FLUID DURING RECEIPT. PATIENT MCNEAL CATH IN PLACE, MODERATE URINE OUTPUT NOTED SAFETY MEASURES HAVE BEEN PROVIDED AND IMPLEMENTED. PATIENT BED ALARM IS ON. HEAD OF BED ELEVATED. BED IS LOCKED, IN LOWEST POSITION AND SIDE RAILS UP. CALL LIGHT WITHIN REACH OF THE PATIENT. ISOLATION PRECAUTIONS IN PLACE. WILL CONTINUE TO MONITOR AND REASSESS FOR ANY CHANGES.
[2020-02-23] MEDS: Thiamine 100 MG in IV D5W 50 ML IV SCH (20:18)
[2020-02-24] VITALS: BP 114/65
[2020-02-24 04:00] VITALS: BP 115/67
--- NOTE | 2020-02-24 06:48 | NUR ---
RN CLOSING NOTE: PATIENT REMAINS IN ROOM. NO SIGNS OF RESPIRATORY DISTRESS. SAFETY MEASURES IMPLEMENTED, BED IN LOWEST POSITION, LOCKED, SIDE RAILS UP, CALL LIGHT WITHIN REACH. ALL NEEDS AND ORDERS ADDRESSED DURING THE SHIFT. ALL DUE MEDS GIVEN ORDERED & SCHEDULED ; PATIENT TOLERATED WELL.PATIENT KEPT CLEAN AND COMFORTABLE WITHIN THE SHIFT. ENDORSED TO INCOMING SHIFT RN FOR CONTINUITY OF CARE.
[2020-02-24 07:21] LABS: CALCIUM, SERUM 8.3 mg/dL (8.5-10.1); CREATININE 2.5 mg/dL (0.6-1.3); MAGNESIUM 2.6 mg/dL (1.8-2.4); PHOSPHORUS 4.7 mg/dL (2.5-4.9); POTASSIUM 4.5 mmol/L (3.5-5.1)
--- NOTE | 2020-02-24 07:25 | NUR ---
CIVILIAN TECHNICIAN/MELISA OPENING NOTE RECEIVED PT IN BED, AWAKE, ALERT AND ORIENTED X1 WITH CONFUSION. PT IS OM ROOM AIR SATURATING AT 98% AT THIS TIME. PT IS ON TELE MONITORING WITH SINUS RHYTHM HR 69 NOTED AT THIS TIME. PT HAS A MCNEAL THAT IS INTACT AND GRAINING FREELY VIA GRAVITY. PT HAS A RIGHT UPPER ARM PICC LINE AND RIGHT HAND 20' INTACT, PATENT AND DRAINING WELL. PT IS IN STABLE CONDITION WITH NO ACUTE DISTRESS NOTED AT THIS TIME. CALL LIGHT WITHIN REACH AND FUNCTIONING. BED LOCKED AND IN LOWEST POSITION. WILL CONTINUE TO MONITOR AND ASSES PT.
[2020-02-24 07:52] LABS: BASOPHILS % (AUTO) 0.1 % (0.0-2.0); EOSINOPHILS % (AUTO) 0.8 % (0.0-6.0); HEMATOCRIT 25 % (33-45); HEMOGLOBIN 8.4 g/dL (11.5-14.8); LYMPHOCYTES # (AUTO) 6.1 /CMM (0.8-4.8); LYMPHOCYTES % (AUTO) 39.9 % (20.0-44.0); MEAN CORPUSCULAR HGB CONC 34 g/dl (31.0-36.0); MEAN CORPUSCULAR VOLUME 105 fL (82-100); MONOCYTES # (AUTO) 0.4 /CMM (0.1-1.30); MONOCYTES % (AUTO) 2.7 % (2.0-12.0); NEUTROPHILS # (AUTO) 8.7 /CMM (1.8-8.9); NEUTROPHILS % (AUTO) 56.5 % (43.0-81.0); PLATELET COUNT (AUTO) 101 /CMM (150-450); RED BLOOD CELL COUNT(AUTO) 2.37 MIL/uL (4.0-5.2); WHITE BLOOD COUNT (AUTO) 15.4 K/uL (4.3-11.0)
[2020-02-24 08:00] VITALS: BP 121/52
[2020-02-24 08:40] LABS: D-DIMER 18.82 mg/L(FEU (0.17-0.50)
[2020-02-24] MEDS: MEROPENEM 500 MG in IV NS 0.9% 100 ML IV SCH (08:52)
[2020-02-24] MEDS: predniSONE 20 MG TABLET PO SCH (08:52)
[2020-02-24] MEDS: PENTOXIFYLLINE 400 MG TABLET.SA PO SCH ×3 (08:52→17:58)
[2020-02-24] MEDS: PANTOPRAZOLE 40 MG VIAL IV SCH ×2 (08:52→20:30)
[2020-02-24 10:07] LABS: BAND % (MANUAL) 2 % (0.0-5.0); LYMPHOCYTES % (MANUAL) 16 % (16-48); MONOCYTES % (MANUAL) 5 % (0-11.0); MYELOCYTES % 2 % (0-0); NEUTROPHILS % (MANUAL) 75 (42-76)
[2020-02-24 12:00] VITALS: BP 124/68
[2020-02-24] MEDS: THIAMINE HCL 100 MG TABLET PO SCH (12:03)
--- NOTE | 2020-02-24 12:58 | NUR ---
SHEARER OPERATOR/MELISA NOTE CONTACTED DR. HEATON REGARDING PT'S ELEVATED HR. DR. HEATON GAVE NEW ORDER OF CARDIZEM 90MG Q6 HOURS WHICH WAS CARRIED OUT. CONTACTED DR. LOPEZ REGARDING PT'S RESPIRATORY STATUS. WAS INFORMED BY THAT SHE MAYBE EXPERIENCING RESPIRATORY DISTRESS DUE TO HER ELEVATED HR WHICH DR. HEATON IS AWARE OFF AND FOLLOWED NEW ORDER. WAS TOLD TO MONITOR THE PT FROM DR. LOPEZ FOR NOW. WILL CONTINUE TO MONITOR AND ASSES PT. PT CONTINUES TO BE ON 6L OF OXYGEN VIA N/C SATURATING AT 97% AT THIS TIME. WILL CONTINUE TO MONITOR AND ASSESS PT.
[2020-02-24 16:00] VITALS: BP 128/59
[2020-02-24] MEDS: CEFTRIAXONE 2 G in IV D5W 100 ML IV SCH (18:13)
--- NOTE | 2020-02-24 18:45 | NUR ---
ACCOUNTING RECONCILIATION CLERK/MELISA NOTE PT HAS AN EPISODE WHERE SHE SMEARED STOOL ALL OVER HER SELF, AND FLOOR AND BEDSIDE TABLE. PT'S LEFT HAND 20' WAS COVERED IN STOOL SO I REMOVED IT. PT STILL HAS AN RIGHT UPPER ARM PICC LINE INTACT AND PATENT AND FLUSHING WELL. WILL ENDORSE TO NEXT SHIFT NURSE.
--- NOTE | 2020-02-24 19:11 | NUR ---
WASTE MANAGEMENT RECYCLING TECHNICIAN/MELISA CLOSING NOTE PT IS CURRENTLY IN BED AWAKE, ALERT AND PLAYING ON HER PHONE. PT IS IN STABLE CONDITION AT THIS TIME. PT IS ALERT, AWAKE AND ORIENTED X2/3.PT IS ON ROOM AIR SATURATING AT 98% AT THIS TIME. PT IS ON TELE MONITORING WITH HR 80 AT THIS TIME. NO ACUTE DISTRESS OR SOB NOTED THROUGH OUT SHIFT. ALL SCHEDULED MEDS GIVEN AND TOLERATED WELL. PT IS FULL CODE. PT'S MCNEAL INTACT AND DRAINING FREELY VIA GRAVITY. ALL NEEDS MEET WITH HELP OF MARINE MAMMAL TRAINER. ALL SAFETY MEASURES TAKEN AND PROVIDED. CALL LIGHT WITHIN REACH AND FUNCTIONING. WILL ENDORSE TO NEXT SHIFT NURSE FOR BEKAH.
--- NOTE | 2020-02-24 19:12 | NUR ---
RN OPENING NOTE RECEIVED PATIENT IN BED RESTING ALERT ORIENTED X2 FORGETFUL WITH CONFUSION,VERBALLY RESPONSIVE FULL CODE ON TELE MONITORING,ON ROOM AIR 97% NO SOB NOT ACUTE DISTRESS NOTED, IV SITE IS RIGHT UPPER ARM INTACT PATENT,ON MCNEAL CATHETER URINE DRAINING ORANGE CLEAR SIDE RAIL X3 UP, BED IN LOW POSITION AND LOCKED CALL LIGHT WITHIN REACH,CONTINUE TO MONITOR.
[2020-02-24 20:00] VITALS: BP 134/69
[2020-02-25] VITALS: BP 130/73
--- NOTE | 2020-02-25 03:08 | NUR ---
RN NOTE PATIENT REFUSED TO BE CLEANED AND REFUSED TO TAKE PICTURES OF SKIN ISSUES, EXPLAINED HER BENEFITS STILL REFUSED CONTINUE TO MONITOR.
[2020-02-25 04:00] VITALS: BP 121/71
--- NOTE | 2020-02-25 05:46 | NUR ---
RN NOTE PATIENT REFUSED LAB WORK,EXPLAINED RISK OF REFUGING SHE STILL REFUSED,CONTINUE TO MONITOR.
--- NOTE | 2020-02-25 07:00 | NUR ---
RN CLOSING NOTE PATIENT ALERT ORIENTED X2 VERBALLY RESPONSIVE,FORGETFUL, WITH CONFUSION, ON TELE MONITORING FULL CODE NO SOB NO ACUTE DISTRESS NOTED, ON ROOM AIR 98% SINUS RHYTHM HR 90 REFUSED LAB WORK TALKED TO HER SHE SAID AFTER DOCTOR SEE HER SHE WILL DO LAB WORK ENDORSE NEXT COMING SHIFT,IV IS PICC LINE ON RIGHT UPPER ARM INTACT PATENT.ON MCNEAL CATHETER, URINE DRAINING ORANGE AND CLEAR,ENDORSE NEXT COMING SHIFT FOR CONTINUATION OF CARE.
--- NOTE | 2020-02-25 07:10 | NUR ---
ACCOUNT RECEIVABLE ASSOCIATE/MELISA OPENING NOTE RECEIVED PT IN BED, AWAKE, ALERT AND ORIENTED X1 WITH CONFUSION. ON ROOM AIR SATURATING AT 98% AT THIS TIME. NO RESPIRATORY DISTRESS NOTED. TELE BOX WAS REMOVED BY PT, CN IS AWARE. MCNEAL CATH IS INTACT AND DRAINING INTO ORANGE COLORED URINE. PT HAS A RIGHT UPPER ARM PICC LINE INTACT, PATENT AND FLUSHED. SAFETY MEASURES OBSERVED. CALL LIGHT WITHIN REACH. BED LOCKED AND IN LOWEST POSITION. WILL CONTINUE TO MONITOR.
--- NOTE | 2020-02-25 08:00 | NUR ---
PATIENT REFUSED TO HAVE HER VITAL SIGNS TAKEN. OFFERED 3X. EXPLAINED RISK AND BENEFITS.
[2020-02-25] MEDS: PANTOPRAZOLE 40 MG VIAL IV SCH (08:58)
[2020-02-25] MEDS: THIAMINE HCL 100 MG TABLET PO SCH (08:59)
[2020-02-25] MEDS: PENTOXIFYLLINE 400 MG TABLET.SA PO SCH ×3 (08:59→16:08)
[2020-02-25] MEDS: predniSONE 20 MG TABLET PO SCH (08:59)
--- NOTE | 2020-02-25 09:00 | NUR ---
PATIENT REFUSED TO GET HER BLOOD DRAWN. OFFERED 3X. EXPLAINED RISK AND BENEFITS.
--- NOTE | 2020-02-25 15:20 | NUR ---
PATIENT REFUSED VITAL SIGNS OFFERED 3X. EXPLAINED RISK AND BENEFITS. MD AWARE WITH NNO AT THIS TIME.
[2020-02-25] MEDS: PANTOPRAZOLE 40 MG TABLET.DR PO SCH (16:08)
[2020-02-25] MEDS: CEFTRIAXONE 2 G in IV D5W 100 ML IV SCH (17:47)
--- NOTE | 2020-02-25 19:12 | NUR ---
RN OPENING NOTE RECEIVED PT AWAKE AND RESTING IN BED. ALERT AND ORIENTED X 2. PATIENT IS CONFUSED AND NEEDS REDIRECTION. FULL CODE. ISOLATION PRECAUTIONS IN PLACE FOR E COLI. NEGATIVE FOR COVID PCR 02/20/20. PATIENT IS ON ROOM AIR. NO SIGNS OF SHORTNESS OF BREATH OR RESPIRATORY DISTRESS AT THIS TIME. PATIENT REFUSED SKIN CHECK, UNABLE TO ASSESS. EXPLAINED IMPORTANCE RISKS AND BENEFITS X 3. PT STILL REFUSED. PT EYES ARE YELLOW, JAUNDICE. HISTORY OF LIVER CIRRHOSIS AND ALCOHOL ABUSE NOTED. RIGHT UPPER ARM PICC LINE, PATENT INTACT FLUSHED. MCNEAL CATHETER PRESENT, DRAINING ORANGE URINE NO SEDIMENTS NOTED AT THIS TIME. BED IS LOCKED IN LOWEST POSITION WITH BED ALARM ON. CALL LIGHT WITHIN REACH. WILL CONTINUE TO CLOSELY MONITOR.
--- NOTE | 2020-02-25 19:20 | NUR ---
CHEMISTRY RESEARCH ASSISTANT/MELISA CLOSING NOTE PT IN BED, AWAKE, STILL ALERT AND ORIENTED X1 WITH CONFUSION. VERBAL BUT CONFUSED. ON ROOM AIR SATURATING AT 98% AT THIS TIME. NO RESPIRATORY DISTRESS NOTED. MCNEAL CATH IS INTACT AND DRAINING INTO ORANGE COLORED URINE COLLECTED 720ML. PT HAS A RIGHT UPPER ARM PICC LINE INTACT, PATENT AND FLUSHED. SAFETY MEASURES OBSERVED. CALL LIGHT WITHIN REACH. BED LOCKED AND IN LOWEST POSITION. WILL ENDORSE TO ONCOMING SHIFT FOR BEKAH.
--- NOTE | 2020-02-25 19:52 | NUR ---
RN NOTE PT REFUSED VITALS AT THIS TIME. EXPLAINED RISKS AND BENEFITS X 3. PT STILL DECLINED. ATTEMPTED TO DO ANOTHER SKIN CHECK. PT DECLINED. OCCLUSION DETECTED ON IV PUMP. ATTEMPTED TROUBLESHOOT. PT DID NOT WANT TO BE TOUCHED. WILL CONTINUE TO MONITOR.
--- NOTE | 2020-02-26 00:06 | NUR ---
RN NOTE PT IS CURRENTLY AWAKE. ATTEMPTED SKIN CHECK AND VITALS. PT REFUSED. EXPLAINED RISKS AND BENEFITS X 3. PT STILL REFUSED. CHARGE NURSE AWARE.
--- NOTE | 2020-02-26 04:28 | NUR ---
RN NOTE PATIENT REFUSED 0400 VITALS AND SKIN CHECK. NO SHORTNESS OF BREATH OR RESPIRATORY DISTRESS AT THIS TIME. WILL CONTINUE TO MONITOR. BED IS LOCKED IN LOWEST POSITION WITH ALARM ON.
--- NOTE | 2020-02-26 07:32 | NUR ---
RN CLOSING NOTE PATIENT IS AWAKE IN BED. ALERT AND ORIENTED X 2. PT ONLY SLEPT INTERMITTENTLY THROUGHOUT THE NIGHT. PERIODS OF CONFUSION. PATIENT HAS NO SIGNS OF RESPIRATORY DISTRESS OR SHORTNESS OF BREATH AT THIS TIME. IV TKO STILL NOT RUNNING. NO SKIN CHECKS PERMITTED AT THE MOMENT. MCNEAL CATHETER DRAINED 1250 ML OF CLEAR YELLOW ORANGE URINE. NO SEDIMENTS PRESENT. BED IS LOCKED IN LOWEST POSITION WITH BED ALARM ON. ENDORSED ONCOMING NURSE FOR FOLLOW UP AND PROGRESSION OF CARE.
[2020-02-26 08:00] VITALS: BP 101/74
[2020-02-26] MEDS: THIAMINE HCL 100 MG TABLET PO SCH (08:54)
[2020-02-26] MEDS: PANTOPRAZOLE 40 MG TABLET.DR PO SCH ×2 (08:55→16:53)
[2020-02-26] MEDS: PENTOXIFYLLINE 400 MG TABLET.SA PO SCH ×3 (08:55→16:53)
[2020-02-26] MEDS: predniSONE 20 MG TABLET PO SCH (08:57)
--- NOTE | 2020-02-26 11:51 | NUR ---
Pt was received dangling on the edge of bed. alert but confused of time an place. Generalized jaundice noted. Microbiology from [facility] lab called with positive blood culture x 1 bottle of gram + rods, ID made aware, reordered a set of blood cultures. PICC line and Corral cath are intact.
[2020-02-26 13:51] VITALS: BP 110/78
[2020-02-26 16:00] VITALS: BP 115/50
[2020-02-26] MEDS: CEFTRIAXONE 2 G in IV D5W 100 ML IV SCH (17:10)
--- NOTE | 2020-02-26 18:02 | NUR ---
Discharged home with daughter Crystal, via wheelchair with their private vehicle. Discharge instructions and paper work was provided with pt. CM arranged IV antibiotics for home administration through [facility] and home health. PICC line was kept as ordered, was intact and patent. Nikunj Georges CNA went through the belongings list. Pt denies any pain or discomfort at the time of discharge.
== END 2020-02-26 15:30 | disposition home health service (06) | DRG 720 ==
LOC: ER 09:54 → ICU 13:11 → TELE1 02-23 15:19 → MEDSG1 02-25 11:48
PROVIDERS: ADMIT Nurse Practitioner Acute Care
PROC: 30233P1 Transfusion of Nonautologous Frozen Red Cells into Peripheral Vein, Percutaneous Approach (ICD-10-PCS; principal; 2020-02-20)
PROC: 30233R1 Transfusion of Nonautologous Platelets into Peripheral Vein, Percutaneous Approach (ICD-10-PCS; principal; 2020-02-20)
PROC: 02HV33Z Insertion of Infusion Device into Superior Vena Cava, Percutaneous Approach (ICD-10-PCS; 2020-02-21)
PROC: B548ZZA Ultrasonography of Superior Vena Cava, Guidance (ICD-10-PCS; 2020-02-21)
PROC: 30233K1 Transfusion of Nonautologous Frozen Plasma into Peripheral Vein, Percutaneous Approach (ICD-10-PCS; 2020-02-21)
PROC: 30233M1 Transfusion of Nonautologous Plasma Cryoprecipitate into Peripheral Vein, Percutaneous Approach (ICD-10-PCS; 2020-02-23)
PROC: 0DJ08ZZ Inspection of Upper Intestinal Tract, Via Natural or Artificial Opening Endoscopic (ICD-10-PCS; 2020-02-23)
DX: A41.51 Sepsis due to Escherichia coli [E. coli] (principal); G93.41 Metabolic encephalopathy; R65.20 Severe sepsis without septic shock; N39.0 Urinary tract infection, site not specified; B96.20 Unspecified Escherichia coli [E. coli] as the cause of diseases classified elsewhere; J69.0 Pneumonitis due to inhalation of food and vomit; K70.30 Alcoholic cirrhosis of liver without ascites; I85.11 Secondary esophageal varices with bleeding; D62 Acute posthemorrhagic anemia; E80.6 Other disorders of bilirubin metabolism; N17.0 Acute kidney failure with tubular necrosis; E44.0 Moderate protein-calorie malnutrition; E88.09 Other disorders of plasma-protein metabolism, not elsewhere classified; E87.5 Hyperkalemia; K76.6 Portal hypertension; K31.89 Other diseases of stomach and duodenum; D61.818 Other pancytopenia; D65 Disseminated intravascular coagulation [defibrination syndrome]; D68.9 Coagulation defect, unspecified; T38.0X5A Adverse effect of glucocorticoids and synthetic analogues, initial encounter; Y92.89 Other specified places as the place of occurrence of the external cause; D72.829 Elevated white blood cell count, unspecified; J90 Pleural effusion, not elsewhere classified; E87.1 Hypo-osmolality and hyponatremia; R16.1 Splenomegaly, not elsewhere classified; E86.9 Volume depletion, unspecified; N18.9 Chronic kidney disease, unspecified
CPT/HCPCS: 36415; 36600; 70450-TC; 71045-TC; 76700-TC; 80048-TC; 80053-TC; 80061-TC; 80076-TC; 80202-TC; 80305; 81000-TC; 82140-TC; 82550-TC; 82553; 82570-TC; 82728-TC; 82803-TC; 83540-TC; 83605-TC; 83615-TC; 83735-TC; 83970; 84100-TC; 84155; 84155-TC; 84165; 84300-TC; 84443-TC; 84484-TC; 84702-TC; 84703-TC; 85025-TC; 85378-TC; 85396; 85730-TC; 86140-TC; 86803; 86850-TC; 86921-TC; 87040-TC; 87081-TC; 87086-TC; 87186-TC; 87806; 93307-TC; 97116-TC; 97530-TC; C1751; C9113; C9803-CS; G0378; G0480; J0696; J1100; J1200; J1630; J1940; J2185; J2354; J2405; J2543; J3370; J3411; J3430; J7030; J7040; J7050; J7060; J7510; P9012; P9016-BL; P9017-BL; P9034-BL; U0003-CS